=== PATIENT | female | born 1955 | race African-American/Black ===

== ENCOUNTER 2018-01-29 21:47 | Emergency (ER) | payer MEDICARE, BC ==
[~2018-01-29] VITALS: Ht 162.6 cm; Wt 59.0 kg
[2018-01-30 08:06] VITALS: BP 162/87
== END 2018-01-30 08:55 | disposition home or self-care (01) ==
LOC: ER 21:47
DX: S46.911A Strain of unspecified muscle, fascia and tendon at shoulder and upper arm level, right arm, initial encounter (principal); M79.601 Pain in right arm; E11.22 Type 2 diabetes mellitus with diabetic chronic kidney disease; I12.0 Hypertensive chronic kidney disease with stage 5 chronic kidney disease or end stage renal disease; N18.6 End stage renal disease; Z99.2 Dependence on renal dialysis; Z94.0 Kidney transplant status; X58.XXXA Exposure to other specified factors, initial encounter; Y93.89 Activity, other specified; Y99.8 Other external cause status; Y92.89 Other specified places as the place of occurrence of the external cause
CPT/HCPCS: 73020; 73060; 73070; 82962

== ENCOUNTER 2018-06-03 09:36 | Emergency (ER) | payer MEDICARE, BC ==
[~2018-06-03] VITALS: Ht 154.9 cm; Wt 60.3 kg
[2018-06-03 10:25] LABS: Basophils # (auto) 0 uL; Basophils % (auto) 0.5 % (0.0-2.0); Eosinophils # (auto) 0 uL; Eosinophils % (auto) 0.3 % (0.0-7.0); Hemoglobin 11.6 g/dL (12.2-16.2); Monocytes % (auto) 9.3 % (0.0-12.0); Red Cell Distribution Width 15.1 % (11.8-14.3)
[2018-06-03 10:27] LABS: Hematocrit 37.2 % (36.0-46.0); Lymphocytes # (auto) 0.8 uL; Lymphocytes % (auto) 20.4 % (10.0-50.0); Mean Corpuscular Hemoglobin 29.8 pg (28.0-32.0); Mean Corpuscular Hgb Conc. 31.1 g/dL (32.0-36.0); Mean Corpuscular Volume 95.8 fL (80.0-100.0); Monocytes # (auto) 0.3 uL; Neutrophils # (auto) 2.6 uL; Neutrophils % (auto) 69.5 % (37.0-80.0); Platelet Count (auto) 220 10^3/uL (140-450); Red Blood Cells 3.89 10^6/uL (4.0-5.20); White Blood Cell 3.8 10^3/uL (4.4-10.8)
[2018-06-03 10:31] LABS: Alanine Aminotransferase 20 U/L (13-56); Albumin 3.1 g/dL (3.4-5.0); Anion Gap 8 (5-15); Aspartate Aminotransferase 16 U/L (15-37); Blood Urea Nitrogen 29 mg/dL (7-18); Calcium 8.1 mg/dL (8.5-10.1); Carbon Dioxide 25 mmol/L (21-32); Chloride 109 mmol/L (98-107); Glucose 207 mg/dL (74-106); Magnesium 2.3 mg/dL (1.6-2.6); Sodium 142 mmol/L (136-145)
[2018-06-03] MEDS ORDERED: SODIUM CHLORIDE 0.9% 1,000 ML IV ONE (10:35)
[2018-06-03 10:36] LABS: Alkaline Phosphatase 89 U/L (45-117); BUN/Creatinine Ratio 17.4; Bilirubin, Total 0.3 mg/dL (0.2-1.0); GFR African American 40 mL/min; GFR Non-African American 33 mL/min; Total Protein 7.1 g/dL (6.4-8.2)
[2018-06-03] MEDS ORDERED: cloNIDine HCL 0.1 MG TAB PO ONE (10:45)
[2018-06-03] MEDS ORDERED: ACETAMINOPHEN 650 mg PER 20 mL UD PO ONE (11:30)
[2018-06-03 11:54] LABS: Urine Bacteria NONE SEEN /hpf (None Seen); Urine Blood Negative /uL (Negative); Urine Specific Gravity 1.016 (1.001-1.035); Urine WBC 15 /hpf (0 - 5)
[2018-06-03 14:29] VITALS: BP 148/83
== END 2018-06-03 15:38 | disposition home or self-care (01) ==
LOC: EDBD 09:36 → ER 09:39
DX: E11.649 Type 2 diabetes mellitus with hypoglycemia without coma (principal); G93.41 Metabolic encephalopathy; N39.0 Urinary tract infection, site not specified; E44.1 Mild protein-calorie malnutrition; I10 Essential (primary) hypertension; I34.0 Nonrheumatic mitral (valve) insufficiency; E11.22 Type 2 diabetes mellitus with diabetic chronic kidney disease; I12.0 Hypertensive chronic kidney disease with stage 5 chronic kidney disease or end stage renal disease; N18.6 End stage renal disease; Z79.4 Long term (current) use of insulin; Z68.25 Body mass index [BMI] 25.0-25.9, adult; Z99.2 Dependence on renal dialysis
CPT/HCPCS: 36415; 71046; 80053; 81001; 82962; 83690; 83735; 83880; 84484; 85025; 93005; 94761; 96360; 96361; 99284; J7030

== ENCOUNTER 2018-08-24 21:47 | Inpatient (IN) | payer MEDICARE, OTHER ==
[~2018-08-24] VITALS: Ht 154.9 cm; Wt 48.6 kg
[~2018-08-24 21:47] MED LIST: ASPI81TA27 PO; ATO40T PO; DOCU100T15 PO; FURO40TA4 PO; GABA100C9 PO; LOSA-46 PO; METO25TA62 PO; MYCO500T3 PO; PANT40TA2 PO; TACR1CAP19 PO
[2018-08-24 23:19] LABS: Basophils # (auto) 0 uL; Basophils % (auto) 0.8 % (0.0-2.0); Eosinophils # (auto) 0 uL; Eosinophils % (auto) 0.5 % (0.0-7.0); Hematocrit 32.6 % (36.0-46.0); Hemoglobin 9.8 g/dL (12.2-16.2); Lymphocytes # (auto) 0.8 uL; Mean Corpuscular Hgb Conc. 30.2 g/dL (32.0-36.0); Mean Corpuscular Volume 96.1 fL (80.0-100.0); Monocytes # (auto) 0.3 uL; Monocytes % (auto) 11.1 % (0.0-12.0); Neutrophils # (auto) 1.5 uL; Neutrophils % (auto) 57.6 % (37.0-80.0); Nucleated Red Blood Cells % 0.2 %; Platelet Count (auto) 199 10^3/uL (140-450); Red Blood Cells 3.39 10^6/uL (4.0-5.20); Red Cell Distribution Width 14.5 % (11.8-14.3); White Blood Cell 2.6 10^3/uL (4.4-10.8)
[2018-08-24 23:27] LABS: Albumin 1.9 g/dL (3.4-5.0); Calcium 7.7 mg/dL (8.5-10.1); Potassium 4.3 mmol/L (3.5-5.1)
[2018-08-24 23:31] LABS: BUN/Creatinine Ratio 21.8; Bilirubin, Total 0.3 mg/dL (0.2-1.0); Total Protein 6.3 g/dL (6.4-8.2)
[2018-08-25] MEDS ORDERED: SODIUM CHLORIDE 0.9% 1,000 ML IV ONE
[2018-08-25] MEDS ORDERED: InsuLIN REG 1unit/0.01ml Soln (100units/ml) IV ONE ×2 (05:15)
[2018-08-25] MEDS ORDERED: SODIUM CHLORIDE 0.9% 500 ML IV ONE (07:00)
[2018-08-25] MEDS ORDERED: MORPHINE SULF INJ 2 MG/ML SYRINGE 1ML IV PRN (07:00)
[2018-08-25] MEDS ORDERED: DEXTROSE (50%) 50ML SYRG IV PRN (07:00)
[2018-08-25] MEDS ORDERED: TEMAZEPAM 15 MG CAP PO PRN (07:00)
[2018-08-25] MEDS ORDERED: NITROGLYCERIN 0.4 MG SL TAB SL PRN (07:00)
[2018-08-25] MEDS ORDERED: ACETAMINOPHEN 325 MG TAB PO PRN (07:00)
[2018-08-25] MEDS ORDERED: cefTRIAXone 1GM/50ML D5W 50 ML IV ONE (08:00)
--- NOTE | 2018-08-25 08:30 | NUR ---
Telemetry admit from ER CYNTHIA GOINS admitted to Telemetry unit after SBAR received. Patient oriented to Deanne Cordoba, RN primary RN, unit, room, bed, and unit policies regarding patient care and visiting hours. Patient now on continuous telemetry monitoring, tele box # 29 and telemetry reading on arrival to unit is SR 95. Patient placed on bedside oxygen, weighed by bedscale and encouraged to call if they need something. All questions and concerns addressed, patient verbalized understanding. Note:
[2018-08-25] MEDS: ACCU-CHEK COMFORT CURVE STRIP VI SCH ×4 (08:35→21:35)
[2018-08-25] MEDS: InsuLIN REG 1unit/0.01ml Soln (100units/ml) SC SCH ×4 (08:35→21:34)
[2018-08-25 09:00] VITALS: BP 140/72
[2018-08-25] MEDS: MYCOPHENOLATE 500 MG TAB PO SCH ×2 (09:42→21:45)
[2018-08-25] MEDS: ASPirin 81 mg TAB PO SCH (09:42)
[2018-08-25] MEDS: LEVOFLOXACIN 250MG 50 ML IV SCH (09:42)
[2018-08-25] MEDS: LOSARTAN POTASSIUM 50 MG TAB PO SCH (09:43)
[2018-08-25] MEDS: METOPROLOL TARTRATE 25 MG TAB PO SCH ×2 (09:44→21:51)
[2018-08-25] MEDS: TACROLIMUS 1 MG CAP PO SCH ×2 (09:44→21:45)
[2018-08-25] MEDS: PANTOPRAZOLE 40 MG TAB PO SCH (09:44)
[2018-08-25 11:15] VITALS: BP 140/72
[2018-08-25] MEDS: HYDROcodone-ACET 5/325MG TAB PO PRN (11:54)
--- NOTE | 2018-08-25 11:55 | NUR ---
Dr. Sina Clancy in to see patient as hospitalist. Dr. Clancy informed that patient has a rough cough.
[2018-08-25 13:00] VITALS: BP 157/74
--- NOTE | 2018-08-25 16:15 | NUR ---
Orders received to send urine sample to Lab. Specimen cup placed in bathroom, MAINTENANCE DEPARTMENT MANAGER informed. Will continue to monitor.
[2018-08-25 17:00] VITALS: BP 130/61
[2018-08-25] MEDS: FUROSEMIDE 40 MG TAB PO SCH (17:53)
--- NOTE | 2018-08-25 18:40 | NUR ---
Urine collected and sent to Lab.
--- NOTE | 2018-08-25 19:00 | NUR ---
Opening Shift Note Report received from day shift RN. Assumed care of patient. Patient awake sitting in bed and alert x4. No S/S of distress/SOB noted and patient denies pain at this time. Family at bedside. Call light left within reach. Instructed on POC and to call for assist PRN, will continue to monitor for changes Q1hr and PRN.
[2018-08-25 19:45] LABS: Urine Bacteria NONE SEEN /hpf (None Seen); Urine Blood TRACE /uL (Negative); Urine Specific Gravity 1.015 (1.001-1.035); Urine WBC 109 /hpf (0 - 5)
[2018-08-25 20:12] LABS: Protein, Urine 540.7 mg/dL (0.0-11.9)
[2018-08-25] MEDS: ATORVASTATIN 20 MG TAB PO SCH (21:45)
[2018-08-25 22:13] VITALS: BP 129/65
--- NOTE | 2018-08-26 00:30 | NUR ---
Patient refused insulin for blood glucose of 174, stated she wants to take it later. Educated patient on the importance of medication compliance. Patient continued to refuse.
[2018-08-26] MEDS: ACCU-CHEK COMFORT CURVE STRIP VI SCH ×6 (00:31→21:59)
--- NOTE | 2018-08-26 03:55 | NUR ---
MRSA swab sent to the lab
[2018-08-26] MEDS: InsuLIN REG 1unit/0.01ml Soln (100units/ml) SC SCH ×6 (03:59→21:58)
[2018-08-26 05:08] VITALS: BP 113/61
[2018-08-26 06:20] LABS: Basophils # (auto) 0 uL; Basophils % (auto) 0.2 % (0.0-2.0); Eosinophils # (auto) 0 uL; Hematocrit 31.4 % (36.0-46.0); Hemoglobin 9.9 g/dL (12.2-16.2); Lymphocytes % (auto) 33.7 % (10.0-50.0); Mean Corpuscular Hemoglobin 29.3 pg (28.0-32.0); Mean Corpuscular Hgb Conc. 31.6 g/dL (32.0-36.0); Mean Corpuscular Volume 92.8 fL (80.0-100.0); Monocytes # (auto) 0.3 uL; Monocytes % (auto) 9.9 % (0.0-12.0); Neutrophils # (auto) 1.6 uL; Neutrophils % (auto) 55.2 % (37.0-80.0); Platelet Count (auto) 191 10^3/uL (140-450); Red Blood Cells 3.39 10^6/uL (4.0-5.20); Red Cell Distribution Width 14.2 % (11.8-14.3); White Blood Cell 2.9 10^3/uL (4.4-10.8)
[2018-08-26 06:34] LABS: BUN/Creatinine Ratio 21.3; Phosphorus 4.4 mg/dL (2.5-4.90); Potassium 3.9 mmol/L (3.5-5.1); Uric Acid 8.4 mg/dL (2.6-6.0)
[2018-08-26] MEDS: FUROSEMIDE 40 MG TAB PO SCH (07:12)
--- NOTE | 2018-08-26 07:15 | NUR ---
Opening Shift Note Assumed care of patient, awake and alert. No S/S of distress/SOB or pain. Instructed on POC and to call for assist PRN, will continue to monitor for changes Q1hr and PRN.
--- NOTE | 2018-08-26 07:23 | NUR ---
CLOSING NOTE ENDORSED CARE TO DAY SHIFT RN. PATIENT SITTING IN BED RESTING. NO COMPLAINTS OF PAIN AND NO S/S OF DISTRESS/ SOB.
--- NOTE | 2018-08-26 08:15 | NUR ---
business services tech at bedside for renal ultrasound.
--- NOTE | 2018-08-26 08:54 | NUR ---
Patient up to BSC, had large soft BM. Patient cleaned and assisted back to bed. Call light in reach. Will continue to monitor.
[2018-08-26 09:00] VITALS: BP 127/63
[2018-08-26] MEDS: PANTOPRAZOLE 40 MG TAB PO SCH (09:47)
[2018-08-26] MEDS: LEVOFLOXACIN 250MG 50 ML IV SCH (09:47)
[2018-08-26] MEDS: METOPROLOL TARTRATE 25 MG TAB PO SCH (09:47)
[2018-08-26] MEDS: ASPirin 81 mg TAB PO SCH (09:48)
[2018-08-26] MEDS: LOSARTAN POTASSIUM 50 MG TAB PO SCH (09:50)
[2018-08-26] MEDS: TACROLIMUS 1 MG CAP PO SCH ×2 (09:51→21:59)
[2018-08-26] MEDS: MYCOPHENOLATE 500 MG TAB PO SCH ×2 (09:51→21:59)
--- NOTE | 2018-08-26 10:30 | NUR ---
Dr. Sina Clancy in to see patient as hospitalist.
[2018-08-26 13:00] VITALS: BP 105/50
[2018-08-26] MEDS ORDERED: SODIUM CHLORIDE 0.9% 500 ML IV ONE (16:00)
--- NOTE | 2018-08-26 16:02 | NUR ---
B/P 84/48. Recheck 88/53, HR 81. Patient skin warm and dry. Patient denies being dizzy. Dr. Clancy informed. New orders received.
--- NOTE | 2018-08-26 16:12 | NUR ---
Normal Saline bolus 500 ml/hr for 1 liter started.
[2018-08-26 17:00] VITALS: BP 88/53
--- NOTE | 2018-08-26 17:00 | NUR ---
16:22 blood sugar 51. Recheck, 60. Patient given orange juice with sugar and farhana crackers. At 16:48 blood sugar was 71. Encouraged patient to eat her dinner when it comes. Patient states understanding.
[2018-08-26 18:30] VITALS: BP 101/57
--- NOTE | 2018-08-26 18:30 | NUR ---
Normal saline bolus completed. B/P 101/57. HR 82.
--- NOTE | 2018-08-26 18:39 | NUR ---
Dinner tray at bedside. Patient states she will eat the peaches and the salad. Patient also given a turkey sandwich per her request. Will continue to monitor. Urine sent to Lab.
--- NOTE | 2018-08-26 19:00 | NUR ---
Opening Shift Note Report received from day shift RN. Assumed care of patient. Patient awake sitting in bed and alert x4. No S/S of distress/SOB noted and patient denies pain at this time. Call light left within reach. Instructed on POC and to call for assist PRN, will continue to monitor for changes Q1hr and PRN.
[2018-08-26 19:53] LABS: Urine Bacteria FEW /hpf (None Seen); Urine Blood Negative /uL (Negative); Urine Hyaline Cast MANY /lpf (0 - 2); Urine Specific Gravity 1.013 (1.001-1.035); Urine WBC 32 /hpf (0 - 5)
[2018-08-26] MEDS: ATORVASTATIN 20 MG TAB PO SCH (21:59)
[2018-08-26 22:00] VITALS: BP 158/72
[2018-08-26] MEDS: ONDANSETRON HCL 4 MG/2 ML VIAL IV PRN (23:58)
[2018-08-27] VITALS (7 sets, daily range): BP systolic 78–131; BP diastolic 47–75
--- NOTE | 2018-08-27 | NUR ---
IV insertion IV access obtained, via clean sterile technique by inserting 22 gauge catheter at RIGHT FOREARM after 1 attempt(s). IV secured properly. No trauma to site. Patient tolerated well.
--- NOTE | 2018-08-27 | NUR ---
IV removal IV DC'd with clean sterile technique, catheter fully intact. Pressure dressing applied to site. Patient tolerated well.
[2018-08-27] MEDS: HYDROcodone-ACET 5/325MG TAB PO PRN (00:01)
[2018-08-27] MEDS: ACCU-CHEK COMFORT CURVE STRIP VI SCH ×6 (00:26→20:43)
[2018-08-27] MEDS: InsuLIN REG 1unit/0.01ml Soln (100units/ml) SC SCH ×6 (00:26→20:00)
--- NOTE | 2018-08-27 07:50 | NUR ---
OPENING SHIFT NOTE PATIENT LAYING IN BED WITH EYES CLOSED CHEST RISE AND FALL VISUALIZED. SHOWING NO S/S OF DISTRESS OR SOB NOTED. BED IS IN LOWEST LOCKED POSITION CALL LIGHT WITH IN REACH. BOARD UPDATED. WILL CONTINUE TO MONITOR
[2018-08-27 08:09] LABS: Protein, Urine 308.2 mg/dL (0.0-11.9)
[2018-08-27] MEDS ORDERED: ADENOSINE 41 MG in GIVE UN-DILUTED 0 ML IV STA (08:50)
[2018-08-27] MEDS: ONDANSETRON HCL 4 MG/2 ML VIAL IV PRN ×2 (08:55→21:05)
[2018-08-27] MEDS: LEVOFLOXACIN 250MG 50 ML IV SCH (08:59)
[2018-08-27] MEDS: TACROLIMUS 1 MG CAP PO SCH ×2 (09:00→21:04)
[2018-08-27] MEDS: ASPirin 81 mg TAB PO SCH (09:00)
[2018-08-27] MEDS: MYCOPHENOLATE 500 MG TAB PO SCH ×2 (09:00→21:00)
[2018-08-27] MEDS: PANTOPRAZOLE 40 MG TAB PO SCH (09:00)
--- NOTE | 2018-08-27 09:16 | NUR ---
PATIENT OFF UNIT AT [facility]
[2018-08-27] MEDS ORDERED: LOSARTAN POTASSIUM 50 MG TAB PO SCH (10:00)
[2018-08-27] MEDS ORDERED: LEVOFLOXACIN 250MG 50 ML IV SCH (10:00)
--- NOTE | 2018-08-27 11:00 | NUR ---
PATIENT BACK ON UNIT SHOWS NO S.S OF DISTRESS OR SOB WILL CONTINUE TO MONITOR
[2018-08-27 11:49] LABS: Basophils # (auto) 0 uL; Eosinophils # (auto) 0 uL; Hemoglobin 10.7 g/dL (12.2-16.2); Lymphocytes % (auto) 28.9 % (10.0-50.0); Monocytes # (auto) 0.3 uL; Neutrophils # (auto) 2.1 uL; Nucleated Red Blood Cells % 0.1 %; Red Cell Distribution Width 14.2 % (11.8-14.3); White Blood Cell 3.4 10^3/uL (4.4-10.8)
[2018-08-27 11:52] LABS: Basophils % (auto) 0.6 % (0.0-2.0); Eosinophils % (auto) 0.6 % (0.0-7.0); Hematocrit 33.4 % (36.0-46.0); Mean Corpuscular Volume 93.7 fL (80.0-100.0); Neutrophils % (auto) 61.9 % (37.0-80.0); Platelet Count (auto) 214 10^3/uL (140-450); Red Blood Cells 3.57 10^6/uL (4.0-5.20)
[2018-08-27 11:57] LABS: BUN/Creatinine Ratio 14.5; Potassium 4.2 mmol/L (3.5-5.1)
--- NOTE | 2018-08-27 16:23 | NUR ---
Per consult for home health safety evaluation. Contacted [facility]: ( [phone]) Fax: ) faxed medical records. Per Jimena Pt has been accepted and service to start within 48hrs upon d/c. Addendum: 08/27/18 at 1625 by ANH BELTRAN Amended: Links added. Addendum: 08/28/18 at 1052 by ANH BELTRAN Per Consult for home health safety evaluation. Per Social Work Tania choice letter has been done by her. Pt requested [facility]. Contacted [facility]: ) Fax:) faxed medical records. Per Arthur from [facility] Pt has been accepted and service to start within 48hrs upon d/c. Informed JENNY Cordova.
--- NOTE | 2018-08-27 17:02 | NUR ---
assessment Patient may benefit from home health for medication management on discharge. Addendum: 08/27/18 at 1702 by Tania SHEPARD Amended: Links added.
--- NOTE | 2018-08-27 19:00 | NUR ---
END OF SHIFT NOTE PATIENT LAYING IN BED WITH EYES CLOSED, CHEST RISE AND FALL VISUALIZED, SHOWING NO S/S OF DISTRESS OR SOB. BED IS IN LOWEST LOCKED POSITION CALL LIGHT WITH IN REACH ENDORSED CARE TO JONNY HEATH RN
--- NOTE | 2018-08-27 19:00 | NUR ---
Opening Shift Note Report received from day shift RN. Assumed care of patient. Patient awake sitting in bed and alert x4. No S/S of distress/SOB noted. Patient complained of having aching abdominal pain 07/23. Will medicate patient as ordered. Call light left within reach. Instructed on POC and to call for assist PRN, will continue to monitor for changes Q1hr and PRN.
[2018-08-27] MEDS: ATORVASTATIN 20 MG TAB PO SCH (21:00)
[2018-08-28] MEDS: ACCU-CHEK COMFORT CURVE STRIP VI SCH ×5 (02:39→16:00)
[2018-08-28 04:13] VITALS: BP 128/82
[2018-08-28] MEDS: InsuLIN REG 1unit/0.01ml Soln (100units/ml) SC SCH ×5 (04:25→16:00)
--- NOTE | 2018-08-28 07:15 | NUR ---
OPENING SHIFT NOTE ASSUMED CARE OF PATIENT. PATIENT IS A&OX4, WITH NO C/O DISTRESS OR PAIN AT THIS TIME. PATIENTS BED IN LOW POSITION, WHEELS LOCKED, BED RAILS UP X 2 AND CALL LIGHT WITHIN REACH. EDUCATED PATIENT ON USE OF CALL LIGHT PRN, PATIENT VERBALIZED UNDERSTANDING. CONTINUING TO MONITOR PATIENT Q1 HOUR
[2018-08-28 07:44] VITALS: BP 100/54
[2018-08-28] MEDS: PANTOPRAZOLE 40 MG TAB PO SCH (09:30)
[2018-08-28] MEDS: LEVOFLOXACIN 250MG 50 ML IV SCH (09:30)
[2018-08-28] MEDS: ASPirin 81 mg TAB PO SCH (09:30)
[2018-08-28] MEDS: MYCOPHENOLATE 500 MG TAB PO SCH (09:30)
[2018-08-28] MEDS: TACROLIMUS 1 MG CAP PO SCH (09:31)
[2018-08-28 12:00] VITALS: BP 111/49
[2018-08-28 16:37] VITALS: BP 131/64
[2018-08-28 17:01] VITALS: BP 148/74
--- NOTE | 2018-08-28 17:15 | NUR ---
IV removal IV DC'd with clean sterile technique, catheter fully intact. Pressure dressing applied to site. Patient tolerated well.
--- NOTE | 2018-08-28 17:30 | NUR ---
patient discharged patient left via wheelchair with family. no c/o distress or pain. patient educated and given discharge instructions, patient verbalized understanding.
[2018-08-30] MEDS ORDERED: LEVOFLOXACIN 250MG 50 ML IV SCH (10:00)
== END 2018-08-28 17:30 | disposition home health service (06) | DRG 637 ==
LOC: ER 21:47 → TELE 21:48 → CENTRAL 08-25 08:30 → TELE-CENTR 08-25 10:09
PROVIDERS: ADMIT Nurse Practitioner; ATTEND Family Medicine
DX: E11.10 Type 2 diabetes mellitus with ketoacidosis without coma (principal); N17.0 Acute kidney failure with tubular necrosis; I21.4 Non-ST elevation (NSTEMI) myocardial infarction; I50.33 Acute on chronic diastolic (congestive) heart failure; J18.9 Pneumonia, unspecified organism; I13.2 Hypertensive heart and chronic kidney disease with heart failure and with stage 5 chronic kidney disease, or end stage renal disease; Z94.0 Kidney transplant status; Z94.83 Pancreas transplant status; N18.5 Chronic kidney disease, stage 5; E78.5 Hyperlipidemia, unspecified; I08.0 Rheumatic disorders of both mitral and aortic valves; I25.10 Atherosclerotic heart disease of native coronary artery without angina pectoris; I48.91 Unspecified atrial fibrillation; K21.9 Gastro-esophageal reflux disease without esophagitis; D70.9 Neutropenia, unspecified; J20.9 Acute bronchitis, unspecified; E78.00 Pure hypercholesterolemia, unspecified; D63.8 Anemia in other chronic diseases classified elsewhere; E11.22 Type 2 diabetes mellitus with diabetic chronic kidney disease; Z88.1 Allergy status to other antibiotic agents; Z88.0 Allergy status to penicillin; Z91.048 Other nonmedicinal substance allergy status; Z79.82 Long term (current) use of aspirin; Z82.5 Family history of asthma and other chronic lower respiratory diseases; Z83.3 Family history of diabetes mellitus; Z95.5 Presence of coronary angioplasty implant and graft; Z79.84 Long term (current) use of oral hypoglycemic drugs
CPT/HCPCS: 36415; 36600; 71045; 76775; 78452; 80048; 80053; 80197; 81001; 82010; 82550; 82570; 82805; 82962; 83036; 83605; 83615; 84100; 84156; 84300; 84443; 84484; 84550; 85025; 87081; 93005; 93017; 96361; 96374; G0378; J0153; J1815; J2405; J7507; J7517

== ENCOUNTER 2018-08-28 21:51 | Inpatient (IN) | payer MEDICARE, OTHER ==
[~2018-08-28] VITALS: Ht 170.2 cm; Wt 53.3 kg
[2018-08-28 23:33] LABS: Basophils # (auto) 0 uL; Basophils % (auto) 0.2 % (0.0-2.0); Eosinophils # (auto) 0 uL; Eosinophils % (auto) 0.5 % (0.0-7.0); Hemoglobin 9.8 g/dL (12.2-16.2); Lymphocytes % (auto) 25.6 % (10.0-50.0); Mean Corpuscular Hemoglobin 29.5 pg (28.0-32.0); Mean Corpuscular Hgb Conc. 31.5 g/dL (32.0-36.0); Mean Corpuscular Volume 93.6 fL (80.0-100.0); Monocytes # (auto) 0.3 uL; Monocytes % (auto) 7.4 % (0.0-12.0); Neutrophils # (auto) 2.5 uL; Neutrophils % (auto) 66.3 % (37.0-80.0); Nucleated Red Blood Cells % 0.1 %; Platelet Count (auto) 205 10^3/uL (140-450); Red Blood Cells 3.32 10^6/uL (4.0-5.20); Red Cell Distribution Width 14.1 % (11.8-14.3); White Blood Cell 3.8 10^3/uL (4.4-10.8)
[2018-08-28 23:53] LABS: Albumin 1.9 g/dL (3.4-5.0); Calcium 7.3 mg/dL (8.5-10.1); Potassium 4.3 mmol/L (3.5-5.1)
[2018-08-28 23:55] LABS: BUN/Creatinine Ratio 10.9
[2018-08-29] LABS: Bilirubin, Total 0.1 mg/dL (0.2-1.0); Total Protein 5.9 g/dL (6.4-8.2)
[2018-08-29] MEDS ORDERED: MORPHINE SULF INJ 2 MG/ML SYRINGE 1ML IV ONE (01:30)
[2018-08-29] MEDS ORDERED: ONDANSETRON HCL 4 MG/2 ML VIAL IV ONE (01:30)
[2018-08-29] MEDS: ACCU-CHEK COMFORT CURVE STRIP VI SCH ×4 (06:00→23:38)
[2018-08-29] MEDS ORDERED: ONDANSETRON HCL 4 MG/2 ML VIAL IV PRN (06:00)
[2018-08-29] MEDS ORDERED: DEXTROSE (50%) 50ML SYRG IV PRN (06:00)
[2018-08-29] MEDS ORDERED: TEMAZEPAM 15 MG CAP PO PRN (06:00)
[2018-08-29] MEDS ORDERED: ACETAMINOPHEN 325 MG TAB PO PRN (06:00)
[2018-08-29] MEDS: InsuLIN REG 1unit/0.01ml Soln (100units/ml) SC SCH ×4 (06:34→23:38)
[2018-08-29] MEDS: FUROSEMIDE 40 MG TAB PO SCH ×2 (06:34→17:44)
[2018-08-29] MEDS: PANTOPRAZOLE 40 MG TAB PO SCH (10:00)
[2018-08-29] MEDS ORDERED: PANTOPRAZOLE 40 MG TAB PO SCH (10:00)
[2018-08-29] MEDS: TACROLIMUS 1 MG CAP PO SCH ×2 (10:00→22:01)
[2018-08-29] MEDS: MYCOPHENOLATE 500 MG TAB PO SCH ×2 (10:00→22:01)
[2018-08-29] MEDS: METOPROLOL TARTRATE 25 MG TAB PO SCH ×2 (10:15→22:02)
[2018-08-29] MEDS: LOSARTAN POTASSIUM 50 MG TAB PO SCH (10:15)
--- NOTE | 2018-08-29 16:30 | NUR ---
MS admit from ER BUSTER,CYNTHIA admitted to tele/MS after verbal report received from JENNY Donaldson, ER. Patient oriented to Bibi Mansfield, primary RN, unit, room, bed, and unit policies regarding patient care and visiting hours. Assumed care of patient, awake, alert and oriented X4. No signs or symptoms of distress, shortness of breath or pain. IV to left wrist, 22 gauge, patent and saline locked. Patient weighed by bedscale and encouraged to call if they need something, verbalized understanding. Bed locked, in lowest position, call light within reach, seizure precautions in place, will continue to monitor Q 1 hour and PRN.
[2018-08-29 16:32] VITALS: BP 136/87
[2018-08-29 18:45] VITALS: BP 126/64
--- NOTE | 2018-08-29 18:53 | NUR ---
NEUROLOGY Dr Kebede at bedside for Neurology consult, new orders received and followed through. Patient updated on plan of care, verbalized understanding.
--- NOTE | 2018-08-29 18:58 | NUR ---
Care endorsed to JENNY Dean, night nurse.
[2018-08-29] MEDS ORDERED: LORazepam 2MG/ML-1ML VIAL IV PRN ×2 (19:15)
--- NOTE | 2018-08-29 20:00 | NUR ---
OPENING NOTE RECEIVED REPORT FROM VICTOR M RN. ASSUMING ROLE OF CARE OF PATIENT AT THIS TIME. PATIENT SHOWING NO SIGN OF DISTRESS, SHORTNESS OF BREATH, AND PATIENT DOES NOT STATE ANY PAIN. PATIENT IS RESTING COMFORTABLY AT THIS TIME. PATIENT EDUCATED ON PLAN OF CARE. SEIZURE PRECAUTIONS IN PLACE AT THIS TIME. BED LOWERED, CALL LIGHT WITHIN REACH, AND PATIENT WILL BE ROUNDED ON EVERY HOUR AND NEEDED.
[2018-08-29 20:17] LABS: Cholesterol 186 mg/dL (< 200); HDL Cholesterol 50 mg/dL (40-59); LDL Cholesterol 110 mg/dL (< 100); Triglycerides 247 mg/dL (< 150)
[2018-08-29 20:22] LABS: Folate (Folic Acid) 11.37 ng/mL (5.38-24)
[2018-08-29 22:00] VITALS: BP 127/59
[2018-08-29] MEDS: ATORVASTATIN 20 MG TAB PO SCH (22:01)
[2018-08-30 05:00] VITALS: BP 99/59
[2018-08-30] MEDS: FUROSEMIDE 40 MG TAB PO SCH ×2 (05:14→18:15)
[2018-08-30] MEDS: InsuLIN REG 1unit/0.01ml Soln (100units/ml) SC SCH ×4 (05:50→23:13)
[2018-08-30] MEDS: ACCU-CHEK COMFORT CURVE STRIP VI SCH ×4 (05:50→23:13)
[2018-08-30 06:02] LABS: Basophils # (auto) 0 uL; Basophils % (auto) 0.3 % (0.0-2.0); Eosinophils # (auto) 0 uL; Eosinophils % (auto) 0.5 % (0.0-7.0); Hematocrit 29.5 % (36.0-46.0); Hemoglobin 9.3 g/dL (12.2-16.2); Lymphocytes # (auto) 1.1 uL; Lymphocytes % (auto) 36.5 % (10.0-50.0); Mean Corpuscular Hemoglobin 29.2 pg (28.0-32.0); Mean Corpuscular Hgb Conc. 31.6 g/dL (32.0-36.0); Mean Corpuscular Volume 92.4 fL (80.0-100.0); Monocytes # (auto) 0.3 uL; Monocytes % (auto) 9.7 % (0.0-12.0); Neutrophils # (auto) 1.5 uL; Platelet Count (auto) 200 10^3/uL (140-450); Red Blood Cells 3.19 10^6/uL (4.0-5.20); Red Cell Distribution Width 14.1 % (11.8-14.3); White Blood Cell 2.9 10^3/uL (4.4-10.8)
[2018-08-30 06:20] LABS: BUN/Creatinine Ratio 11.4; Calcium 7.7 mg/dL (8.5-10.1); Potassium 3.8 mmol/L (3.5-5.1)
--- NOTE | 2018-08-30 07:30 | NUR ---
Opening Shift Note Assumed care of patient, awake and alert, oriented x4 and verbally responsive. Respiratory even and unlabored. No S/S of distress/SOB or pain. Skin is warm and dry to touch , no s/s of hyperglycemia or hypoglycemia noted. Instructed on POC and to call for assist PRN, will continue to monitor for changes Q1hr and PRN.
--- NOTE | 2018-08-30 08:30 | NUR ---
Dr. Hernandez at bedside.
[2018-08-30 09:00] VITALS: BP 113/55
[2018-08-30] MEDS: TACROLIMUS 1 MG CAP PO SCH ×2 (10:27→21:50)
[2018-08-30] MEDS: PANTOPRAZOLE 40 MG TAB PO SCH (10:27)
[2018-08-30] MEDS: CLOPIDOGREL BISULFATE 75 MG TAB PO SCH (10:27)
[2018-08-30] MEDS: MYCOPHENOLATE 500 MG TAB PO SCH ×2 (10:27→21:50)
[2018-08-30] MEDS: LOSARTAN POTASSIUM 50 MG TAB PO SCH (10:28)
[2018-08-30] MEDS: METOPROLOL TARTRATE 25 MG TAB PO SCH ×2 (10:28→21:50)
--- NOTE | 2018-08-30 10:30 | NUR ---
Dr. Clancy at bedside.
--- NOTE | 2018-08-30 12:06 | NUR ---
Nutrition Assessment Notes please see attached link for complete assessment Est. Needs BW 55 [id number] kcal (25-30 kcal/kgBW), 44-55 gms pro (0.8-1.0 gms/kgBW r/t elev RFT no HD severe hypoalb). Will continue to monitor pertinent labs and reassess nutrient need prn. Addendum: 08/30/18 at [address] Amended: Links added.
[2018-08-30 13:00] VITALS: BP 137/67
[2018-08-30 17:00] VITALS: BP 138/68
--- NOTE | 2018-08-30 20:00 | NUR ---
OPENING NOTE RECEIVED REPORT FROM DAYSHIFT RN. ASSUMING ROLE OF CARE OF PATIENT AT THIS TIME. PATIENT SHOWING NO SIGN OF DISTRESS, SHORTNESS OF BREATH, AND PATIENT DENIES ANY PAIN AT THIS TIME. PATIENT EDUCATED ON PLAN OF CARE FOR THE NIGHT AND PATIENT VERBALIZED UNDERSTANDING. BED LOWERED, CALL LIGHT WITHIN REACH, AND PATIENT WILL BE ROUNDED ON EVERY HOUR AND NEEDED.
[2018-08-30] MEDS: ATORVASTATIN 20 MG TAB PO SCH (21:50)
[2018-08-30 22:00] VITALS: BP 98/48
[2018-08-31] MEDS: FUROSEMIDE 40 MG TAB PO SCH (05:28)
[2018-08-31 05:34] VITALS: BP 106/52
[2018-08-31] MEDS: ACCU-CHEK COMFORT CURVE STRIP VI SCH ×2 (05:44→12:31)
[2018-08-31] MEDS: InsuLIN REG 1unit/0.01ml Soln (100units/ml) SC SCH ×2 (05:44→12:31)
[2018-08-31 08:00] VITALS: BP 125/56
[2018-08-31 09:00] VITALS: BP 125/56
[2018-08-31] MEDS: MYCOPHENOLATE 500 MG TAB PO SCH (10:11)
[2018-08-31] MEDS: LOSARTAN POTASSIUM 50 MG TAB PO SCH (10:11)
[2018-08-31] MEDS: CLOPIDOGREL BISULFATE 75 MG TAB PO SCH (10:12)
[2018-08-31] MEDS: TACROLIMUS 1 MG CAP PO SCH (10:12)
[2018-08-31] MEDS: METOPROLOL TARTRATE 25 MG TAB PO SCH (10:12)
[2018-08-31] MEDS: PANTOPRAZOLE 40 MG TAB PO SCH (10:12)
--- NOTE | 2018-08-31 11:00 | NUR ---
re-assessment Patient will need a resumption order on discharge. Addendum: 08/31/18 at 1727 by Tania SHEPARD Amended: Links added.
[2018-08-31 13:00] VITALS: BP 135/66
--- NOTE | 2018-08-31 14:50 | NUR ---
Per SS consult to resume service with [facility]. Contacted [facility]: ) Fax:) faxed medical records. Per Ally from [facility] Pt to resume service within 48hrs upon d/c. Addendum: 08/31/18 at 1452 by ANH BELTRAN Amended: Links added.
--- NOTE | 2018-08-31 16:43 | NUR ---
Discharge instructions given as ordered. Encourage to follow up with PMD as instructed. All questions and concerns addressed. Patient verbalized understanding. Medication reconciliation form completed and copy given to patient. Home medications held in Pharmacy returned to patient, and needed vaccines given. IV removed with catheter intact, pressure dressing applied. Patient taken to vehicle via wheelchair with all personal belongings, accompanied by staff and family member. No distress noted at time of departure.
== END 2018-08-31 16:40 | disposition home health service (06) | DRG 100 ==
LOC: EDBD 21:51 → ER 21:55 → OVERFLOW 21:56 → WEST WING 08-29 16:12
PROVIDERS: ADMIT Nurse Practitioner; ATTEND Family Medicine
DX: G40.409 Other generalized epilepsy and epileptic syndromes, not intractable, without status epilepticus (principal); I50.33 Acute on chronic diastolic (congestive) heart failure; N18.6 End stage renal disease; I13.2 Hypertensive heart and chronic kidney disease with heart failure and with stage 5 chronic kidney disease, or end stage renal disease; Z94.0 Kidney transplant status; E11.649 Type 2 diabetes mellitus with hypoglycemia without coma; J20.9 Acute bronchitis, unspecified; D63.8 Anemia in other chronic diseases classified elsewhere; E11.42 Type 2 diabetes mellitus with diabetic polyneuropathy; D63.1 Anemia in chronic kidney disease; E11.22 Type 2 diabetes mellitus with diabetic chronic kidney disease; E11.65 Type 2 diabetes mellitus with hyperglycemia; E78.00 Pure hypercholesterolemia, unspecified; E78.5 Hyperlipidemia, unspecified; F17.200 Nicotine dependence, unspecified, uncomplicated; K74.60 Unspecified cirrhosis of liver; H91.90 Unspecified hearing loss, unspecified ear; I48.91 Unspecified atrial fibrillation; I25.10 Atherosclerotic heart disease of native coronary artery without angina pectoris; I25.2 Old myocardial infarction; Z79.02 Long term (current) use of antithrombotics/antiplatelets; Z79.4 Long term (current) use of insulin; Z79.899 Other long term (current) drug therapy; Z82.0 Family history of epilepsy and other diseases of the nervous system; Z82.5 Family history of asthma and other chronic lower respiratory diseases; Z83.3 Family history of diabetes mellitus; Z88.8 Allergy status to other drugs, medicaments and biological substances; Z88.0 Allergy status to penicillin
CPT/HCPCS: 36415; 70450; 70551; 71045; 72125; 78582; 80048; 80053; 80061; 82607; 82746; 82962; 84443; 84484; 85025; 85379; 87081; 93886; 93970; G0378; J1815; J2405; J7507; J7517

== ENCOUNTER 2018-09-01 06:16 | Emergency (ER) | payer MEDICARE, OTHER ==
[~2018-09-01] VITALS: Ht 167.6 cm; Wt 59.0 kg
[~2018-09-01 06:16] MED LIST changes: +ASPI-404 PO; -ASPI81TA27 PO; -LOSA-46 PO; +LOSA-69 PO
[2018-09-01] MEDS ORDERED: ONDANSETRON HCL 4 MG/2 ML VIAL ONE (06:45)
[2018-09-01] MEDS ORDERED: LORazepam 2MG/ML-1ML VIAL ONE (07:00)
[2018-09-01] MEDS ORDERED: LORazepam 2MG/ML-1ML VIAL IV ONE (07:30)
[2018-09-01 08:14] LABS: Urine Bacteria FEW /hpf (None Seen); Urine Blood TRACE /uL (Negative); Urine Mucus FEW (None Seen); Urine Specific Gravity 1.014 (1.001-1.035); Urine WBC 3 /hpf (0 - 5)
[2018-09-01 08:42] LABS: Basophils # (auto) 0 uL; Eosinophils # (auto) 0 uL; Lymphocytes # (auto) 0.3 uL; Monocytes # (auto) 0.3 uL; White Blood Cell 7.6 10^3/uL (4.4-10.8)
[2018-09-01 08:44] LABS: Basophils % (auto) 0.2 % (0.0-2.0); Lymphocytes % (auto) 3.9 % (10.0-50.0); Mean Corpuscular Hgb Conc. 29.4 g/dL (32.0-36.0); Mean Corpuscular Volume 98.5 fL (80.0-100.0); Monocytes % (auto) 3.6 % (0.0-12.0); Neutrophils % (auto) 92.3 % (37.0-80.0); Nucleated Red Blood Cells % 0.2 %; Platelet Count (auto) 258 10^3/uL (140-450); Red Blood Cells 3.45 10^6/uL (4.0-5.20); Red Cell Distribution Width 14.8 % (11.8-14.3)
[2018-09-01 08:58] LABS: Albumin 2.2 g/dL (3.4-5.0); Anion Gap 18 (5-15); Blood Urea Nitrogen 52 mg/dL (7-18); Calcium 8.4 mg/dL (8.5-10.1); Carbon Dioxide 13 mmol/L (21-32); Chloride 104 mmol/L (98-107); Potassium 5.4 mmol/L (3.5-5.1); Sodium 135 mmol/L (136-145)
[2018-09-01 09:07] LABS: Alanine Aminotransferase 13 U/L (13-56); Alkaline Phosphatase 115 U/L (45-117); Aspartate Aminotransferase 17 U/L (15-37); BUN/Creatinine Ratio 12.6; Bilirubin, Total 0.4 mg/dL (0.2-1.0); Blood Alcohol < 3.0 mg/dL (0-5); GFR African American 14 mL/min; GFR Non-African American 12 mL/min; Total Protein 6.4 g/dL (6.4-8.2)
[2018-09-01 09:21] LABS: Glucose 656 mg/dL (74-106)
[2018-09-01] MEDS ORDERED: InsuLIN R (HUMAN) 100 UNITS in SODIUM CHL 0.9% 99 ML IV SCH (09:34)
[2018-09-01 09:36] LABS: INR 0.93 (0.9-1.15); Partial Thromboplastin Time 25.7 sec (23.64-32.05)
[2018-09-01] MEDS ORDERED: DEXTROSE (50%) 50ML SYRG IV PRN (09:45)
[2018-09-01] MEDS ORDERED: InsuLIN REG 1unit/0.01ml Soln (100units/ml) IV ONE (09:45)
[2018-09-01] MEDS: ACCU-CHEK COMFORT CURVE STRIP VI SCH ×3 (10:53→13:30)
[2018-09-01] MEDS ORDERED: LIDOCAINE 2%HCL (LOCAL ANESTH.) INJ 20ML MDV ONE (13:31)
[2018-09-01 13:40] VITALS: BP 98/35
[2018-09-01] MEDS ORDERED: LIDOCAINE 2%HCL (LOCAL ANESTH.) INJ 10ml MDV IJ ONE (14:15)
[2018-09-07] MEDS ORDERED: ONDANSETRON HCL 4 MG/2 ML VIAL IV ONE (12:00)
== END 2018-09-01 14:09 | disposition short-term general hospital (02) ==
LOC: EDBD 06:16 → ER 06:16
DX: G93.41 Metabolic encephalopathy (principal); G40.909 Epilepsy, unspecified, not intractable, without status epilepticus; E43 Unspecified severe protein-calorie malnutrition; E11.10 Type 2 diabetes mellitus with ketoacidosis without coma; E11.22 Type 2 diabetes mellitus with diabetic chronic kidney disease; I12.0 Hypertensive chronic kidney disease with stage 5 chronic kidney disease or end stage renal disease; N18.6 End stage renal disease; I48.91 Unspecified atrial fibrillation; E78.5 Hyperlipidemia, unspecified; I25.2 Old myocardial infarction; Z68.21 Body mass index [BMI] 21.0-21.9, adult
CPT/HCPCS: 36415; 36556; 70450; 71045; 80053; 80320; 81001; 82010; 83605; 83735; 84484; 85025; 85610; 85730; 87040; 93005; 96365; 96366; 96375; 96376; 99291; J1815; J2001; J2060; J2405; J7030